=== PATIENT | female | born 1985 | race Caucasian/White ===

== ENCOUNTER 2019-05-15 15:55 | Emergency (ER) | payer MEDICAID, SELFPAY ==
[2019-05-15 15:55] VITALS: BP 162/80; PULSE 94; RESP 18; TEMP 36.6; O2SAT 100; BMI 28.8
--- NOTE | 2019-05-15 16:10 | ED.DCSUM_ITS ---
History of Present Illness Chief Complaint: Complaint Detail of Chief Complaint: Amenorrhea Informant: Patient Onset: Month(s) Narrative: Patient presents with amenorrhea for the past 4 months. She states she used to be on Depakote shot for irregular periods. She stopped the shots about 5 years ago. The last 2 years her menstrual cycle has been very regular, every 28 days. She has not had a period for the last 4 months. She reports abdominal bloating and breast tenderness. She has taken home test which were negative. Patient states she moved here from [place] 5 years ago and has not followed up with an SECURITIES CLERK since that time. Past Medical History - Allergies and Home Meds Allergies/Adverse Reactions: Allergies amoxicillin Allergy (Verified 05/15/19 15:58) Hives ketorolac [From Toradol] Allergy (Verified 05/15/19 15:58) Other Prior records reviewed: Yes Past Medical History: - - Reviewed Review of Systems General: Denies: Chills, Fever ENT: Denies: Bilateral ear pain Cardiovascular: Denies: Chest pain Respiratory: Denies: Dyspnea, Cough Gastrointestinal: Reports: Nausea, - - Abdominal bloating Genitourinary: Denies: Dysuria, Hematuria Skin: Denies: Rash Neurological: Denies: Headache Physical Exam Vital Signs/Narrative: Vital Signs Temp Pulse Resp BP Pulse Ox 05/15/19 15:55 98 F 94 18 162/80 H 100 Inital Vital Signs reviewed: Yes General: Well nourished, Well developed ENT: Moist mucous membranes Neck: Supple Cardiovascular: Regular rate, Regular rhythm Respiratory: No distress, CTA bilaterally Abdomen: Soft, Nontender Extremities: Nontender Skin: Normal color, No rash Neurological: Alert, Oriented x3 Psychological: Normal affect Diagnostic/Tx/Re-eval Laboratory Results 05/15/19 05/15/19 16:20 16:20 Urine Color Yellow Urine Clarity Clear Urine pH 7.0 Ur Specific [place] 1.010 Urine Protein Negative Urine Glucose (UA) Normal Urine Ketones Negative Urine Occult Blood Negative Urine Nitrite Negative Urine Bilirubin Negative Urine Urobilinogen Normal Ur Leukocyte Esterase Negative Urine RBC 0 SEEN Urine WBC 0 SEEN Ur Squamous Epith Cells 0 SEEN Urine Bacteria 0 SEEN Urine Mucus 0 SEEN Urine Test Negative - Medical Decision Making Bedside ultrasound was performed on initial evaluation. There is no obvious evidence of . Urinalysis and urine are unremarkable. I did recommend follow-up with [facility] and she will be referred to Dr. Villegas, who is on for no doc. ED Disposition - Plan for ED Patient: Disposition: Home or Assisted Living Diagnosis: Amenorrhea Instructions: Amenorrhea Referrals: Johnie Negron MD [Primary Care Provider] - Alexandra Yusuf MD [STAFF PHYSICIAN] - As soon as possible
[2019-05-15 16:26] LABS: Bacteria 0 SEEN /hpf (None Seen); Mucous, Urine 0 SEEN /hpf (<or=2+); Red Blood Cells-Urine 0 SEEN /hpf (0-5); Squamous Epithelial Cells - UA 0 SEEN /hpf (5-10); White Blood Cells 0 SEEN /hpf (0-5)
[2019-05-15 16:45] LABS: Color, Urine Yellow (Yellow); Glucose, Dipstick Normal (Normal); Ketone-Dipstick Negative (Negative); Leukocyte Esterase-Dipstick Negative /ul (Negative); Nitrite-Dipstick Negative (Negative); Occult Blood-Urine Negative /ul (Negative); Protein-Dipstick Negative (Negative); Urine Bilirubin Dipstick Negative (Negative); Urine Clarity Clear (Clear); Urine Urobilinogen Normal (Normal)
[2019-05-15 16:49] LABS: Internal QC Validated? YES +Cl - CLEAR BKGD; Pregnancy, Urine Negative Negative
== END 2019-05-15 17:02 | disposition home or self-care (01) ==
PROVIDERS: Emergency Provider Emergency Medicine; Family Provider Family Medicine; PCP Family Medicine
DX: N91.2 Amenorrhea, unspecified (principal)
CPT/HCPCS: 81001; 81025; 99282

== ENCOUNTER → 2020-10-29 15:27 | Outpatient (CLI) | payer MEDICAID, SELFPAY ==
[2020-10-29 14:51] VITALS: BMI 29.2
[2020-10-29 17:07] LABS: Free T3 3.3 pg/mL (2.18-3.98); Thyroid Stim Hormone (TSH) 0.25 uIU/mL (0.358-3.74)
[2020-10-31 08:44] LABS: Thyroid Peroxidase AB 9 IU/mL (0-34)
== END ==
PROVIDERS: PCP Family Medicine; Referring Provider Internal Medicine Endocrinology, Diabetes & Metabolism; Visit Provider Internal Medicine Endocrinology, Diabetes & Metabolism
DX: E04.9 Nontoxic goiter, unspecified (principal)
CPT/HCPCS: 36415; 84439; 84443; 84481; 86376